=== PATIENT | male | born 1985 | race American Indian/Alaskan Native ===

== ENCOUNTER 2017-10-27 03:46 | Emergency (ER) | payer OTHER ==
[2017-10-27 04:56] VITALS: BP 107/64
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
== END 2017-10-27 08:40 | disposition left against medical advice (07) ==
LOC: ED 03:46
DX: Z04.8 Encounter for examination and observation for other specified reasons (principal); Z53.21 Procedure and treatment not carried out due to patient leaving prior to being seen by health care provider